=== PATIENT | male | born 1975 ===

== ENCOUNTER 2025-02-14 08:20 | Outpatient (CLI) | payer BC, SELFPAY | END 2025-02-14 08:21 | disposition home or self-care (01) | PROVIDERS: PCP Family Medicine; Visit Provider Family Medicine | DX: E53.8 Deficiency of other specified B group vitamins (principal); R73.03 Prediabetes; E66.9 Obesity, unspecified; I25.10 Atherosclerotic heart disease of native coronary artery without angina pectoris; R53.83 Other fatigue | CPT/HCPCS: 80053; 80061; 84270; 84402; 84403 ==

== ENCOUNTER 2025-03-07 13:07 | Outpatient (CLI) | payer BC, SELFPAY ==
--- NOTE | 2025-03-19 12:10 | W.PM.SLEEP ---
Sleep Study Details Details Interpreting Provider: Cliff Date of Sleep Study: 03/07/25 Sleep Study Details: STUDY TYPE:? Home unattended ? BMI:? Not recorded ORDERING PROVIDER:? Cliff INDICATION:? Concern about sleep apnea ? SLEEP SUMMARY:? 305 minutes monitored RESPIRATORY SUMMARY:? AHI 16.5 Low oxygen 86 0.4% of study oxygen less than 90% Snoring 93.7% PERIODIC LIMB MOVEMENTS OF SLEEP:? Not recorded CARDIAC:? Range 60-101, mean 72.8 IMPRESSION:? Moderate obstructive sleep apnea RECOMMENDATION: Treatment options include CPAP, dental appliance, weight loss if indicated and/or airway expansion surgery.
== END 2025-03-07 13:08 | disposition home or self-care (01) ==
LOC: SLEEP 13:08
PROVIDERS: PCP Family Medicine; Visit Provider Otolaryngology
DX: G47.33 Obstructive sleep apnea (adult) (pediatric) (principal)
CPT/HCPCS: 95806

== ENCOUNTER 2025-04-26 08:11 | Outpatient (CLI) | payer BC, SELFPAY | END 2025-04-26 08:12 | disposition home or self-care (01) | PROVIDERS: PCP Family Medicine; Visit Provider Family Medicine | DX: D64.9 Anemia, unspecified (principal); D72.819 Decreased white blood cell count, unspecified | CPT/HCPCS: 81240; 81241; 82607; 82728; 83090; 83540; 85300; 85302; 85303; 85306; 85384; 86146; 86147 ==

== ENCOUNTER 2025-05-10 07:03 | Outpatient (CLI) | payer BC, SELFPAY ==
--- NOTE | 2025-05-10 07:15 | CRLHL7_ITS ---
For Patients: As a result of the Century Cures Act, medical imaging exams and procedure reports are released immediately into your electronic medical record. You may view this report before your referring provider. If you have questions, please contact your health care provider. INDICATION: Pulmonary embolism COMPARISON: none TECHNIQUE: A compression venous ultrasound exam was performed of both lower extremities using wu scale imaging, color Doppler and spectral Doppler analysis. FINDINGS: Sonographic imaging of the lower extremities demonstrates normal compressibility and color Doppler venous blood flow within the common femoral, deep femoral, and proximal greater saphenous veins. Within the thighs the femoral veins are patent and compressible. At a lower level the popliteal and posterior tibial veins also show normal compressibility and color Doppler venous blood flow. IMPRESSION: Normal venous ultrasound exam. No evidence of deep vein thrombosis within either the left or right lower extremity. Dictated by Adrian Hill MD @ 05/10/2025 8:32:55 AM (Electronically Signed)
== END 2025-05-10 07:04 | disposition home or self-care (01) ==
LOC: US 07:04
PROVIDERS: PCP Family Medicine; Visit Provider Family Medicine
DX: I26.99 Other pulmonary embolism without acute cor pulmonale (principal); Z86.39 Personal history of other endocrine, nutritional and metabolic disease
CPT/HCPCS: 93970